=== PATIENT | male | born 1965 | race Caucasian/White ===

== ENCOUNTER → 2017-06-17 | Outpatient (CLI) | payer BC | LOC: FIMAGING 14:19 | PROVIDERS: ATTEND Physical Medicine & Rehabilitation | DX: N28.1 Cyst of kidney, acquired (principal) ==

== ENCOUNTER 2018-05-14 05:42 | Inpatient (IN) | payer BC ==
[~2018-05-14 05:42] MED LIST: LIDOCAINE 1% 2 ML INJ ID PRN; LR 1,000 ML IV ONE
[2018-05-14] MEDS ORDERED: cefOXitin SODIUM 2 GM in NS 100 ML IV ONE (06:00)
--- NOTE | 2018-05-14 06:53 | PDANEPAE ---
ANE History of Present Illness prostate cancer ANE Past Medical History - Cardiovascular History Hx Hypertension: No Hx Arrhythmias: No Hx Chest Pain: No Hx Coronary Artery / Peripheral Vascular Disease: No Hx CHF / Valvular Disease: No Hx Palpitations: No - Pulmonary History Hx COPD: No Hx Asthma/Reactive Airway Disease: No Hx Recent Upper Respiratory Infection: No Hx Oxygen in Use at Home: No Hx Sleep Apnea: No Sleep Apnea Screening Result - Last Documented: Negative - Neurologic History Hx Cerebrovascular Accident: No Hx Seizures: No Hx Dementia: No - Endocrine History Hx Diabetes: No Hypothyroid: No Hyperthyroid: No Obesity: no - Renal History Hx Renal Disorders: No - Liver History Hx Hepatic Disorders: No - Neurological & Psychiatric Hx Hx Neurological and Psychiatric Disorders: No - Cancer History Hx Cancer: Yes Cancer History Comment: prostate cancer 11/2017 - Congenital Disorder History Hx Congenital Disorders: Yes Congenital History Comment: congenital hernia - GI History GERD: no Hx Gastrointestinal Disorders: No - Chronic Pain History Chronic Pain: No - Surgical History Prior Surgeries: appendectomy. vasectomy. inguinal hernia ANE Review of Systems Review of Systems: - Exercise capacity Exercise capacity: >=4 METS METS (RN): 6 METS ANE Patient History - Allergies Allergies/Adverse Reactions: No Known Allergies Allergy (Verified 04/15/18 10:36) - Home Medications Home Medications: Ibuprofen [Motrin (*)] 200 mg PO DAILY PRN 04/15/18 [Last Taken Unknown] - NPO status NPO Since - Liquids (Date): 05/13/18 NPO Since - Liquids (Time): 21:00 NPO Since - Solids (Date): 05/13/18 NPO Since - Solids (Time): 12:00 - Anes Hx Anes Hx: no prior problems - Smoking Hx Smoking Status: Never smoked Marijuana use: No - Alcohol Use Alcohol Use: Rarely - Family Anes Hx Family Anes Hx: neg - N/A ANE Labs/Vital Signs - Vital Signs Blood Pressure: 133/87 Heart Rate: 58 Respiratory Rate: 18 O2 Sat (%): 94 Height: 177.8 cm Weight: 77.111 kg ANE Physical Exam - Airway Neck exam: FROM Mallampati Score: Class 2 Mouth exam: normal dental/mouth exam - Pulmonary Pulmonary: no respiratory distress, no rales or rhonchi, clear to auscultation - Cardiovascular Cardiovascular: regular rate and rhythym, no murmur, rub, or gallop - ASA Status ASA Status: II ANE Anesthesia Plan Anesthesia Plan: general endotracheal anesthesia Total IV Anesthesia: No
[2018-05-14] MEDS ORDERED: MIDAZOLAM 2 MG/2 ML VIAL IVP ONE (06:54)
[2018-05-14] MEDS ORDERED: BUPIVACAINE/EPI 0.5% 30 ML SDV ONE (07:00)
[2018-05-14] MEDS ORDERED: fentaNYL 100 MCG/2 ML INJ ONE ×3 (07:24→11:54)
[2018-05-14] MEDS ORDERED: REMIFENTANIL HCL 1 MG VIAL ONE ×2 (07:24→09:18)
[2018-05-14] MEDS ORDERED: PROPOFOL/EMULSION 500 MG/50 ML BOTTLE IV ONE ×2 (07:24→09:18)
[2018-05-14] MEDS ORDERED: DEXAMETHASONE 4 MG/ML VIAL ONE (07:26)
[2018-05-14] MEDS ORDERED: ROCURONIUM 50 MG/5 ML VIAL ONE ×2 (07:26→07:54)
[2018-05-14] MEDS ORDERED: PROPOFOL 200 MG/20 ML VIAL ONE (07:26)
[2018-05-14] MEDS ORDERED: ONDANSETRON 4 MG/2 ML VIAL ONE (07:26)
[2018-05-14] MEDS ORDERED: LIDOCAINE 2% 2 ML INJ ONE ×2 (07:33)
--- NOTE | 2018-05-14 07:35 | PDHPUP ---
History & Physical Update H&P update statement: This history and physical update is based on an assessment of the patient which was completed after admission or registration (within 24 hours), but prior to the surgery/procedure. H&P update: no change in patient's condition since H&P completed
--- NOTE | 2018-05-14 07:51 | POSTOPPROG ---
Post Op Note Date of Operation: 05/14/18 Surgeon: Marla Foy (# [id number]) Anesthesia: GET(General Endotracheal) Pre-op Diagnosis: Prostate cancer Post-op Diagnosis: Prostate cancer Procedure: Robotic radical prostatectomy + bilateral PLND Findings: See op note Inf/Abcess present in the surg proc area at time of surgery?: No EBL: 50-100 (50 cc) Complications: None Drains: Forrest Jones (10 Flat) Specimen(s): 1. Prostate + SV's 2. Bilateral PLN's
[2018-05-14] MEDS ORDERED: ACETAMINOPHEN 500 MG TAB PO PRN (08:22)
[2018-05-14] MEDS ORDERED: oxyCODONE IR 5 MG TAB PO PRN (08:22)
[2018-05-14] MEDS ORDERED: NALOXONE HCL 0.4 MG/ML INJ IVP PRN ×2 (08:22→12:08)
[2018-05-14] MEDS ORDERED: PROMETHAZINE HCL 25 MG/ML INJ IVP PRN ×2 (08:22→12:08)
[2018-05-14] MEDS ORDERED: ONDANSETRON 4 MG/2 ML VIAL IVP PRN ×2 (08:22→12:08)
[2018-05-14] MEDS ORDERED: HYDROCODONE/APAP 5/325 TAB PO PRN (08:22)
[2018-05-14] MEDS ORDERED: PHENYLEPHRINE HCL 100 MCG/ML SYR IVP PRN (08:22)
[2018-05-14] MEDS ORDERED: LR 500 ML IV PRN (08:22)
[2018-05-14] MEDS ORDERED: THROMBIN(HUM PLAS)/FIBRINOG/CA 5 ML VIAL TP ONE ×2 (08:36→09:39)
[2018-05-14] MEDS: fentaNYL 100 MCG/2 ML INJ IVP PRN ×2 (12:02→12:10)
[2018-05-14] MEDS ORDERED: LIDOCAINE 2% JELLY 5 ML TUBE TP PRN (12:08)
[2018-05-14] MEDS ORDERED: ZOLPIDEM TARTRATE 5 MG TAB PO PRN (12:08)
[2018-05-14] MEDS ORDERED: HYDROmorphONE/DILAUDID 6 MG/30 ML PCA IV PRN (12:08)
[2018-05-14] MEDS ORDERED: HYDROmorphONE/DILAUDID 2 MG/ML INJ ONE (12:15)
[2018-05-14] MEDS: HYDROmorphONE/DILAUDID 2 MG/ML INJ IVP PRN ×4 (12:18→13:03)
[2018-05-14] MEDS ORDERED: KETOROLAC 30 MG/1 ML SDV IVP ONE (12:27)
[2018-05-14] MEDS ORDERED: KETOROLAC 30 MG/1 ML SDV ONE (12:29)
--- NOTE | 2018-05-14 13:28 | GOP ---
DATE OF OPERATION: 05/14/2018 SURGEON: Marla Foy MD HYDROMETEOROLOGICAL TECHNICIAN: Whitley Dupont CFA. ANESTHESIA: General endotracheal. PREOPERATIVE DIAGNOSIS: Prostate cancer. POSTOPERATIVE DIAGNOSIS: Prostate cancer. PROCEDURE PERFORMED: Robotically-assisted laparoscopic radical prostatectomy and bilateral pelvic lymphadenectomy. FINDINGS: Grossly organ-confined prostate cancer. SPECIMENS: 1. Prostate with attached bilateral seminal vesicles. 2. Bilateral pelvic lymph node packages. ESTIMATED BLOOD LOSS: Approximately 50 cc. INDICATIONS: This gentleman was recently diagnosed with clinically localized prostate adenocarcinoma. He has opted to proceed with radical prostatectomy as definitive therapy. The indications for the procedure as well as potential risks and complications were discussed with the patient preoperatively. He appeared to understand, his questions were answered, and he wished to proceed. Written informed surgical consent was thereafter obtained. DESCRIPTION OF PROCEDURE: The patient was brought to the operating room operating room and administered general endotracheal anesthesia. He was carefully placed in the low lithotomy position with Vijay stirrups. All appropriate pressure points were padded, right arm was extended < 90 degrees on an arm board, and the left arm was kept along the patient's side. The abdomen and genitalia were sterilely prepped and draped in standard fashion utilizing Ioban. An 18-Iraqi Suh catheter was placed sterilely on the field to bag drainage. Intraabdominal access was gained approximately 2 cm above the umbilicus in the midline with a Veress needle. The abdomen was insufflated to 15 mmHg which was the pressure maintained throughout the remainder of the case. A 12 mm laparoscopic port was placed at this location. Proper intraabdominal access was confirmed with the 0 degree 12 mm robotic camera. I then marked out my remaining port sites which were as follows: An 8 mm robotic port approximately 2 cm below the umbilicus and 12 cm lateral to the midline in the left lower quadrant, an 8 mm robotic port in the right lower quadrant 2 cm below the umbilicus and 7.5 cm lateral to the midline, a third 8 mm robotic port placed 8 cm lateral to the right lower quadrant port and nearly in the same transverse line as the umbilicus, and a 12 mm laparoscopic surgical assistant certified port placed in the left upper quadrant along the lateral edge of the rectus muscle. All these ports were placed under direct vision without complication. The patient was then placed in approximately 27 degrees Trendelenburg position. The robot was docked between the patient's legs. The appropriate robotic arms were secured to the respective ports. I then left the patient's bedside and entered the surgeon's robotic console. The 0-degree 12 mm camera was used for the remainder of the case. There were some adhesions between the right colon and the right pelvic sidewall. These were sharply with scissors dissection. There were also some adhesions between the sigmoid colon and the left lateral abdominal wall. These were also dissected sharply to allow for easier entrance into the prerectal space. Using scissors dissection, a transverse midline incision was made with those scissors approximately 1.5 cm above the rectum through the posterior peritoneum. A gentle spreading motion was then used to ultimately identify the location of the vas deferens and seminal vesicles bilaterally. These structures were carefully dissected free from the surrounding tissue with monopolar scissors and bipolar cautery as necessary. The vas deferens was ligated a few centimeters from their insertion into the base of the prostate with bipolar cautery and divided with scissors. The tips to the seminal vesicles, which included vasculature, were ligated with Hem-o-krishna clips bilaterally and divided with scissors. Once the seminal vesicles and vas deferens were completely dissected free, a transverse incision was made through Denonvilliers fascia just below the base of the prostate in the midline. Gentle spreading motion was then used to bluntly dissect the prostate anteriorly from the rectum posteriorly as far towards the prostatic apex as possible. This completed the posterior dissection. Hemostasis of the posterior dissection site was confirmed. I turned my attention to performing the remainder of the operation anteriorly. The anterior peritoneum was incised high along the anterior abdominal wall, lateral to the obliterated umbilical ligaments, with monopolar scissors. This was performed bilaterally and these incisions through the anterior peritoneum were carried back towards the underlying vas deferens. Gentle spreading motion was used to develop the lateral pelvic spaces bilaterally. The obliterated umbilical ligaments were ligated bilaterally with bipolar cautery high along the anterior abdominal wall and then divided with scissors. A connecting transverse incision through the anterior peritoneum was then made between the obliterated umbilical ligaments, thereby allowing entrance into the retropubic space of Retzius. I then continued this dissection until the prostate and bladder were more clearly visualized. The endopelvic fascia was identified overlying and extending lateral to the prostate on each side, and it was incised lateral to the prostate on each side with scissors. These incisions through the endopelvic fascia were extended from the base of the prostate up to the apex using scissors dissection. The underlying levator ani muscles were carefully teased off the prostate with gentle blunt dissection. The superficial penile plexus was ligated with bipolar cautery and divided with scissors. I was able to dissect free and isolate the dorsal vein complex distal to the prostatic apex. 2 separate 0 Vicryl stick ties on a CT-1 needle were then utilized to ligate the dorsal vein complex, staying distal to the prostatic apex and also above the urethra. This was done using a slip knot technique. I then turned my attention to performing the bladder neck dissection. This was done with monopolar scissors in a bladder neck sparing fashion. This dissection was carried lateral to the midline on each side with monopolar scissors dissection in order to help separate the prostate base from the anterior bladder. The bladder neck was identified and transected with scissors. This was done in a manner to preserve the bladder neck as much as possible while not compromising the prostate margin. The previously placed Suh catheter was then pulled up anteriorly in order to expose the back wall of the urethra. This was transected as well. I continued my dissection posteriorly until the previously dissected seminal vesicles and vas deferens were identified. They were pulled up anteriorly. I continued my dissection along the left lateral aspect of the prostate. A minimal extra-fascial nerve- sparing procedure was performed on this side. I was very cautious with the nerve-sparing process on the left side due to the extent of cancer on this particular side, as well as the preoperative prostate sonographic findings on that same side which were concerning for malignancy. I then ligated the left- sided prostatic pedicle with a series of Hem-o-krishna clips and divided it with scissors. The rectum was carefully and gently dissected bluntly off the prostate posteriorly and removed from harm's way. I continued the left lateral dissection of the prostate from the surrounding pelvic fascia with cold scissors dissection until I reached the prostatic apex. I then performed the right-sided dissection next. An aggressive nerve-sparing dissection was performed on this side. This was done in an intra-fascial fashion from the base of the prostate extending up towards the apex. Once the neurovascular bundle was out of harm's way, the right prostatic pedicle was ligated with a series of Hem-o-krishna clips and divided with cold scissors. The remaining attachments between the right lateral prostate and the underlying pelvic fascia were then dissected free with sharp cold scissors dissection to the level of the prostatic apex. The rectum was completely free at this point. The apical dissection was performed next. Bipolar cautery was used to transect the dorsal vein complex while staying between the prostatic apex and the previously placed Vicryl sutures. The underlying urethra was ultimately identified. I spared as much length to the urethra as possible while not compromising the apical margin for cancer control purposes. Once the urethra was divided, the underlying rectourethralis muscle was sharply divided with scissors. At this point, the prostate was completely free. It should be noted there was no obvious gross extraprostatic cancer appreciated. The prostate was then placed in the left upper quadrant of the abdomen and later placed in a specimen bag. The pelvis was carefully inspected. No active bleeding was noted. Rectum was grossly noted to be intact. There was a nice length of urethra to work with for the anastamosis. A 3-0 Vicryl V-Loc suture was then used to reapproximate the posterior plate. This was done by reapproximating the rectourethralis muscle at the level of the urethral stump to the vesico-visceral fascia along the posterior aspect of the bladder. This was performed in a running fashion. The urethrovesical anastomosis was then completed with a running double-armed 3-0 Monocryl suture in a [id number] approximating fashion. Once this anastomosis was completed, a new 18-Iraqi Suh catheter was inserted with 20 cc of sterile water placed in the balloon. The catheter was irrigated and a total of 150 cc of sterile fluid was placed in the bladder. The anastomosis was confirmed to be watertight at this point. The catheter was connected to bag drainage. I then turned my attention to performing bilateral pelvic lymphadenectomy. I started on the left side. The following limits of dissection were used: The lateral pelvic sidewall laterally, the lateral aspect of the bladder medially, the obturator nerve posteriorly, the bifurcation of the common iliac vein superiorly, and Coopers ligament inferiorly. The obturator nerve was identified as were the iliac vessels. These structures were not harmed while performing the pelvic lymph node dissection. Perforating lymphatics and vasculature were ligated with Hem-o-krishna clips as necessary. The lymph node package was collected with a specimen bag and sent to Pathology for permanent histologic examination. An identical procedure was performed on the right side. Again, no grossly abnormal nodes were appreciated on this side. At the conclusion of the bilateral pelvic lymphadenectomy, the iliac vessels bilaterally were intact as were the obturator nerves. Hemostasis was present. Intraabdominal pressure was temporarily decreased to 5 mm of Hg and hemostasis was still confirmed to be present. A total of 5 cc of Evicel was then placed in the pelvis, with 2 cc placed at each pelvic lymph node dissection site and 1 cc divided between the neurovascular bundles on each side. The prostate was then placed in 10 mm specimen bag. A 10 flat Forrest-Jones drain was placed in the pelvis and brought out through the left lower quadrant robotic port site. It was ultimately secured to the skin with a 2-0 silk suture and connected to the bulb suction. This completed the robotic portion of the procedure. I returned to the patient's bedside. The specimen bag was retrieved from the supraumbilical midline port site. An 0 Vicryl suture with a fascial closure device was used to reapproximate the anterior rectus fascia at the location of the 12 mm surgical assistant certified port site. The remaining ports were then removed. The midline supraumbilical incision was extended slightly in order to allow for delivery of the specimen bag containing the prostate. The anterior rectus fascia at this location was reapproximated with a running 0 Vicryl suture. All the wounds were irrigated with normal saline. A total of 30 cc of 0.5% Marcaine with epinephrine was used for local anesthesia. The skin edges were reapproximated at each incision site with a running 4-0 Monocryl subcuticular suture. The skin was then dressed with Dermabond at each site. The patient was awakened, transferred to his bed, then taken to the recovery room. He tolerated the procedure well overall. COMPLICATIONS: None. DISPOSITION: He was transferred to the recovery room in stable condition. He will be admitted for postoperative care. /[id number]/MODL MTDD
--- NOTE | 2018-05-14 13:37 | POSTANESTH ---
Post Anesthetic Evaluation Cardiovascular Status: Normal, Stable Respiratory Status: Normal, Stable Level of Consciousness/Mental Status: Can Participate in Eval Pain Control: Adequate, Prn Tx Ordered Nausea/Vomiting Control: Adequate, Prn Tx Ordered Complications Possibly Related to Anesthesia: None Noted
[2018-05-14] MEDS: cefOXitin SODIUM 2 GM in NS 100 ML IV SCH ×3 (13:38→23:56)
[2018-05-14] MEDS: D5W 1/2 NS 1,000 ML IV SCH (13:38)
--- NOTE | 2018-05-14 16:37 | PDMN ---
Medical Necessity Medical necessity: Pt meets inpt criteria per MD order and General Surgery GRG, Pelvic lymphadenectomy, CPT 42956- [facility] inpt only list code. 52 y/o male admitted for robotic radical prostatectomy and bilateral pelvic lymphadenectomy.
--- NOTE | 2018-05-14 16:44 | ASMTCMCOM ---
CM Note CM Note Notes: Pt is s/p prostatectomy and bx for prostate CA. He lives at home with his in [place]. CM will follow for any d/c needs. Date Signed: 05/14/2018 04:43 PM Electronically Signed By:EZ Castro
[2018-05-14] MEDS: KETOROLAC 15 MG/1 ML SDV IVP SCH (18:07)
[2018-05-15] MEDS: KETOROLAC 15 MG/1 ML SDV IVP SCH ×4 (02:14→18:11)
[2018-05-15] MEDS: cefOXitin SODIUM 2 GM in NS 100 ML IV SCH ×2 (05:31→12:40)
[2018-05-15] MEDS: D5W 1/2 NS 1,000 ML IV SCH (09:20)
[2018-05-15] MEDS: HYDROCODONE/APAP 10/325 TAB PO PRN ×2 (12:49→18:11)
--- NOTE | 2018-05-15 13:25 | SOAPPROG ---
SOAP Progress Note Assessment/Plan: Assessment: POD 1 s/p robotic radical prostatectomy + bilateral PLND - stable. Plan: Continue postop care. Possible d/c home later today. Subjective: Complains of dizziness with standing and walking. Pain controlled with narcotics. No N/V. Objective: Vital Signs Temp Pulse Resp BP Pulse Ox 37.6 C 70 18 129/69 H 90 L 05/15/18 11:52 05/15/18 11:52 05/15/18 11:52 05/15/18 11:52 05/15/18 11:52 Laboratory Results 05/15/18 04:27 05/15/18 04:00 05/14/18 05/15/18 05/16/18 05:59 05:59 05:59 Intake Total 1600 Output Total 2190 1000 Balance -590 -1000 Physical Exam - Physical Exam General Appearance: WD/WN, alert, no apparent distress Abdomen: soft, distended (mildly), other (incisions c/d/i) Male Genitalia: other (urine clear via Suh) Skin: normal color, warm/dry Extremities: non-tender, normal inspection Neuro/Psych: alert, normal mood/affect ICD10 Worksheet Patient Problems: Problems Problem Status Onset Prostate cancer Acute - ICD10 Problem Qualifiers (1) Prostate cancer
[2018-05-15 17:01] VITALS: BP 112/72
--- NOTE | 2018-05-15 18:29 | GDS ---
ADMIT DIAGNOSIS: Prostate adenocarcinoma. DISCHARGE DIAGNOSIS: Prostate adenocarcinoma. PROCEDURE: Robotically-assisted laparoscopic radical prostatectomy and bilateral pelvic lymphadenect ened[place] on 05/14/2018. HOSPITAL COURSE: Refer to the operative report for details regarding the procedure. Postoperatively, the patient recovered without complication. His vital signs were stable, and he was afebrile. His laboratory work was stable. His exam was unremarkable. Urine was relatively clear c olored within the Suh catheter. He was ambulating, tolerating regular diet, and pain was controlle d with oral narcotics prior to discharge. He was deemed ready for discharge on postoperative day 1. Pathology results are obviously pending. He was given activity restriction instructions as well as Suh catheter care. He will use Coral p.r .n. pain and begin Cipro 500 mg twice daily in 1 week. He has been instructed to return to the [facility] in approximately 10 days for Suh removal. /[id number]/MODL
== END 2018-05-15 18:45 | disposition home or self-care (01) | DRG 708 ==
LOC: F1N 05:42
PROVIDERS: ADMIT Specialist; ATTEND Specialist
PROC: 8E0WXCZ Robotic Assisted Procedure of Trunk Region (ICD-10-PCS; principal; 2018-05-14 07:15)
PROC: 0VT04ZZ Resection of Prostate, Percutaneous Endoscopic Approach (ICD-10-PCS; principal; 2018-05-14 07:15)
PROC: 07TC4ZZ Resection of Pelvis Lymphatic, Percutaneous Endoscopic Approach (ICD-10-PCS; principal; 2018-05-14 07:15)
DX: C61 Malignant neoplasm of prostate (principal)
CPT/HCPCS: J0694; J1100; J1170; J1885; J2250; J2405; J2704; J3010

== ENCOUNTER → 2018-11-06 | Outpatient (CLI) | payer BC | LOC: BMCIMAGING 15:20 | PROVIDERS: ATTEND Family Medicine | DX: J40 Bronchitis, not specified as acute or chronic (principal) ==

== ENCOUNTER → 2018-11-24 | Outpatient (CLI) | payer BC | LOC: BMCIMAGING 13:11 | PROVIDERS: ATTEND Emergency Medicine | DX: J40 Bronchitis, not specified as acute or chronic (principal) ==